=== PATIENT | female | born 1935 | race Caucasian/White ===

== ENCOUNTER 2024-03-16 14:30 | Emergency (ER) | payer MEDICARE | END 2024-03-16 15:58 | LOC: NAV ERS 14:30 | DX: R51.9 Headache, unspecified (principal); I13.0 Hypertensive heart and chronic kidney disease with heart failure and stage 1 through stage 4 chronic kidney disease, or unspecified chronic kidney disease; I50.9 Heart failure, unspecified; N18.9 Chronic kidney disease, unspecified | CPT/HCPCS: 70450 ==